=== PATIENT | male | born 1980 | race Hispanic/Latino ===

== ENCOUNTER 2018-02-15 23:21 | Emergency (ER) | payer OTHER ==
[2018-02-15 23:27] VITALS: TEMP 97.5
--- NOTE | 2018-02-15 23:39 | ED PDOC ---
HPI: CCC, URI, Sore Throat Time Seen by Provider: 02/15/18 23:29 Chief Complaint (Nursing): ENT Problem Chief Complaint (Provider): throat pain History Per: Patient Additional Complaint(s): 37 year old male presents with throat discomfort and difficulty swallowing x 3 hours s/p eating food earlier today. Patient states he is not able to tolerate his own saliva and cannot drink water. He has nausea and vomiting upon arrival. Patient denies any chest pain or SOB. Patient states he has had this sensation in his throat in the past but it usually passes after a few minutes. This is the first time that symptoms have last several hours. PMD: Dr. Phillip Past Medical History Reviewed: Historical Data, Nursing Documentation, Vital Signs Vital Signs: Last Vital Signs Temp 97.5 F L 02/15/18 23:24 Pulse 109 H 02/15/18 23:24 Resp 20 02/15/18 23:24 BP 156/93 H 02/15/18 23:24 Pulse Ox 96 02/15/18 23:24 - Medical History PMH: No Chronic Diseases - Surgical History Surgical History: No Surg Hx - Family History Family History: States: No Known Family Hx - Living Arrangements Living Arrangements: With Friends/Others - Social History Current smoker - smoking cessation education provided: No Alcohol: < 2 Drinks/Day Drugs: Denies - Home Medications Home Medications: Ambulatory Orders Medication Instructions Recorded Ondansetron Hydrochloride 4 mg PO Q6 PRN #12 tab 10/28/14 - Allergies Allergies/Adverse Reactions: Allergies Allergy/AdvReac Type Severity Reaction Status Date / Time No Known Allergies Allergy Verified 02/15/18 23:24 Review of Systems ROS Statement: Except As Marked, All Systems Reviewed And Found Negative Constitutional: Negative for: Fever ENT: Positive for: Throat Pain, Throat Swelling, Other (cannot tolerate anything PO) Cardiovascular: Negative for: Chest Pain Respiratory: Negative for: Cough Gastrointestinal: Positive for: Nausea, Vomiting. Negative for: Abdominal Pain Neurological: Negative for: Headache, Dizziness Physical Exam - Reviewed Nursing Documentation Reviewed: Yes Vital Signs Reviewed: Yes - Physical Exam Appears: Positive for: Well, Non-toxic, No Acute Distress Skin: Positive for: Normal Color. Negative for: Rash Eye Exam: Positive for: Normal appearance ENT: Positive for: Pharyngeal Erythema, Other (no visualized food bolus or FB noted to posterior pharynx). Negative for: Tonsillar Exudate, Tonsillar Swelling Neck: Positive for: Normal. Negative for: Pain On Movement Of Neck Cardiovascular/Chest: Positive for: Regular Rate, Rhythm Respiratory: Positive for: Normal Breath Sounds Gastrointestinal/Abdominal: Positive for: Soft. Negative for: Tenderness Extremity: Positive for: Normal ROM Neurologic/Psych: Positive for: Alert, Oriented - ECG O2 Sat by Pulse Oximetry: 96 Pulse Ox Interpretation: Normal Medical Decision Making Medical Decision Makin37 year old male with throat discomfort Patient was given small sip of water Plan: CBC CMP Lipase IVF IV zofran IV glucagon CT soft tissue neck Disposition - Clinical Impression Clinical Impression: Throat discomfort - Patient ED Disposition Is Patient to be Admitted: Transfer of Care - Disposition Disposition: Transfer of Care Disposition Time: 23:55 Condition: FAIR Patient Signed Over To: Tierra Lozano PA-C Handoff Comments: Signed out pending diagnostic testing results and final disposition
[2018-02-15] MEDS ORDERED: Sodium Chloride 0.9% 1,000 ML IV STA (23:44)
[2018-02-15] MEDS ORDERED: Glucagon Recombinant 1 mg Inj IM STA (23:44)
[2018-02-16] MEDS ORDERED: Glucagon Recombinant 1 mg Inj ONE (00:04)
[2018-02-16 00:07] LABS: BASO % 0.5 % (0.0-2.0); EOS # 0.2 K/uL (0.0-0.7); EOS % 2.1 % (0.0-4.0); HEMOGLOBIN 16.2 g/dL (12.0-18.0); LYMPH # 1.5 K/uL (1.0-4.3); LYMPH % 17.7 % (20.0-40.0); MEAN CELL VOLUME 89.8 fl (80.0-94.0); MEAN CORPUSCULAR HEMOGLOBIN 31.4 pg (27.0-31.0); MEAN PLATELET VOLUME 9.9 fl (7.2-11.7); MONO # 0.7 K/uL (0.0-0.8); MONO % 7.9 % (0.0-10.0); NEUT # 6.2 K/uL (1.8-7.0); NEUT % 71.8 % (50.0-75.0); NRBC % 0.1 % (0.0-0.0); RBC 5.15 Mil/uL (4.40-5.90); RED CELL DISTRIBUTION WIDTH 13.3 % (11.5-14.5); WHITE BLOOD COUNT 8.6 K/uL (4.8-10.8)
[2018-02-16 00:18] LABS: ALB/GLOB RATIO 1.4 (1.0-2.1); ALBUMIN 4.7 g/dL (3.5-5.0); ALT/SGPT 45 U/L (21-72); AST/SGOT 31 U/L (17-59); BLOOD UREA NITROGEN 11 mg/dl (9-20); CALCIUM 9.7 mg/dL (8.4-10.2); GFR AFRICAN-AMERICAN > 60; GFR NON-AFRICAN AMERICAN > 60; LIPASE 59 U/L (23-300)
--- NOTE | 2018-02-16 01:45 | ED PDOC ---
- Laboratory Results Result Diagrams: 02/16/18 00:04 02/16/18 00:04 - ECG O2 Sat by Pulse Oximetry: 96 Medical Decision Making Medical Decision Making: Case endorsed to me by BHARAT Lenz at [address] neck and re-evaluation. Labs reviewed and is wnl. CT neck : FINDINGS: Oropharynx: Normal. No significant tonsillar enlargement. Hypopharynx: Normal. Larynx: Normal. Normal epiglottis. Trachea: Normal. Retropharyngeal space: Normal. Submandibular/parotid glands: Normal. Glands are normal in size. Thyroid: Normal. No enlarged or calcified nodules. Bones/joints: No acute fracture. Soft tissues: Normal. Vasculature: No acute findings. Lymph nodes: Normal. No lymphadenopathy. Lung apices: Unremarkable as visualized. IMPRESSION: Normal neck CT. Dictated and Authenticated by: Mitchell Pinon MD 02/16/2018 1:00 AM Eastern Time ([place] & [place]) 0130 On re-evaluation, patient reports improvement of symptoms, denies any pain or FB sensation to his throat. On further questioning, the patient states that this occurs to him regularly, at least once a month lasting for a few mins, describes it as a spasm sensation, feels as if his throat closes up. He has seen an ENT doctor in the past and had a scope done in the office with revealed no abnormality at that time and was advised to get a barium swallow study, which he never followed up with. On exam, patient remains AAOx3, in no acute distress, no drooling, speaking in full sentences, able to tolerate po fluids. Lab results reviewed and discussed with him. Diagnostic results d/w the patient in great detail. Diagnosis of UES spasm d/w the patient. Based on history, exam and diagnostic results, plan will be for outpatient follow up. Patient instructed to follow-up with pmd / referral provided - GI in 1-2 days without fail. Return to the emergency room at any time for any new or worsening symptoms. Patient states he fully agrees with and understands discharge instructions. States that he agrees with the plan and disposition. Verbalized and repeated discharge instructions and plan. I have given the patient opportunity to ask any additional questions. Disposition - Clinical Impression Clinical Impression: Throat discomfort, Esophageal spasm - POA Present On Arrival: None - Disposition Referrals: Rick Walton MD [Staff Provider] - Disposition: Routine/Home Disposition Time: 01:30 Condition: IMPROVED Additional Instructions: Thank you for letting us take care of you today. You were treated for dysphagia , consider UES spasm. The emergency medical care you received today was directed at your acute symptoms. Return to the Emergency Department if your symptoms worsen, do not improve, or if you have any other problems. Please contact your doctor in 2 days for re-evaluation and follow up / or call one of the GI physicians/clinics you have been referred to that are listed on the Patient Visit Information form that is included in your discharge packet. Bring any paperwork you were given at discharge with you along with any medications you are taking to your follow up visit. Our treatment cannot replace ongoing medical care by a primary care provider (PCP) outside of the emergency department. Thank you for allowing the [facility] team to be part of your care today. Instructions: Dysphagia (DC) Forms: [employer] ([place]) - PA / [employer] SPECIALIST / Resident Statement MD/DO has reviewed & agrees with the documentation as recorded.
[2018-02-16 02:03] VITALS: BP 152/86; PULSE 99; RESP 13; O2SAT 100
--- NOTE | 2018-02-16 11:36 | CT ---
PROCEDURE: CT NECK WITHOUT CONTRAST HISTORY: cannot tolerate PO s/p choking on meat COMPARISON: None. TECHNIQUE: CT of the neck without intravenous contrast. Coronal and sagittal reformats generated. Radiation dose: DLP 470.34 mGy-cm This CT exam was performed using one or more of the following dose reduction techniques: Automated exposure control, adjustment of the mA and/or kV according to patient size, and/or use of iterative reconstruction technique. FINDINGS: NASOPHARYNX: Unremarkable. SUPRAHYOID NECK: Unremarkable oropharynx, oral cavity, parapharyngeal space and retropharyngeal space. INFRAHYOID NECK: Unremarkable larynx, hypopharynx, and supraglottic space. Vocal cords intact. GLANDS: Parotid and submandibular glands appear unremarkable. Normal size thyroid gland, without nodule. LYMPH NODES: Normal. No lymphadenopathy. CERVICAL SPINE: No fracture or focal lesion. OTHER FINDINGS: The visualize air degenerative tract appears widely patent without retained definitive foreign body. IMPRESSION: Unremarkable non-contrast enhanced CT of the neck. Concordant preliminary report from [facility], 02/16/2018.
== END 2018-02-16 02:03 | disposition home or self-care (01) ==
LOC: H.ER 23:21
DX: J02.9 Acute pharyngitis, unspecified (principal); K22.4 Dyskinesia of esophagus
CPT/HCPCS: 70490; 80053; 83690; 85025; 96372; 99283; J1610; J2405; J7030